=== PATIENT | male | born 1975 | race Caucasian/White ===

== ENCOUNTER → 2016-05-24 | Outpatient (CLI) | payer BC | LOC: FIMAGING 10:03 | PROVIDERS: ATTEND Registered Nurse | DX: M79.662 Pain in left lower leg (principal); M79.89 Other specified soft tissue disorders ==

== ENCOUNTER → 2018-03-14 | Outpatient (CLI) | payer BC | LOC: FIMAGING 08:40 | PROVIDERS: ATTEND Family Medicine | DX: K82.4 Cholesterolosis of gallbladder (principal); K76.0 Fatty (change of) liver, not elsewhere classified ==